=== PATIENT | female | born 1950 | race Caucasian/White ===

== ENCOUNTER → 2017-11-01 15:38 | Outpatient (CLI) | payer MEDICARE, SELFPAY ==
--- NOTE | 2017-11-01 15:44 | BI_ITS ---
MAMMOGRAPHY - BILATERAL SCREENING REASON FOR EXAM: Female, 67 years old. Routine annual screening examination. PERTINENT HISTORY: Non-contributory. TECHNIQUE: Digital bilateral breast tirso (3D mammographic acquisition) in the CC and MLO projections. 2-D mediolateral oblique (MLO) and craniocaudad (CC) views of both breasts were obtained. CAD: Full Field Digital Mammography with Computer Added Detection was performed. COMPARISON: Comparison is made with prior study dated November 21, 2016 and November 09, 2015. FINDINGS: Breast Composition: The breasts are almost entirely fatty. There are no dominant masses or suspicious calcifications. No other significant abnormalities are identified. There has been no significant change since the prior study. BI/SCREENING MAMM (CAD), BILAT IMPRESSION: Stable bilateral screening mammogram. Yearly follow-up mammogram recommended. (A) ASSESSMENT CATEGORY: BIRADS Category 1: Negative. A letter regarding these results will be sent to the patient by the facility within 30 days. Approximately 10% of breast cancers are not detected by mammography. A normal mammogram should not delay biopsy of a clinically suspicious abnormality. [id number] Electronically Signed: Simeon Mcclelland MD at 8:48 EDT Tel [phone], Service support ,
== END ==
PROVIDERS: Visit Provider Nurse Practitioner Family
DX: Z12.31 Encounter for screening mammogram for malignant neoplasm of breast (principal)
CPT/HCPCS: 77063; 77067

== ENCOUNTER → 2018-11-10 | Outpatient (CLI) | payer MEDICARE, SELFPAY ==
--- NOTE | 2018-11-10 15:43 | BI_ITS ---
MAMMOGRAPHY - BILATERAL SCREENING REASON FOR EXAM: Female, 68 years old. Routine annual screening examination. PERTINENT HISTORY: Non-contributory. TECHNIQUE: Digital bilateral breast tirso (3D mammographic acquisition) in the CC and MLO projections. 2-D mediolateral oblique (MLO) and craniocaudad (CC) views of both breasts were obtained. CAD: Full Field Digital Mammography with Computer Added Detection was performed. COMPARISON: Comparison is made with prior study dated November 01, 2017 and November 21, 2016. FINDINGS: Breast Composition: The breasts are almost entirely fatty. There are no dominant masses or suspicious calcifications. No other significant abnormalities are identified. There has been no significant change since the prior study. BI/SCREENING MAMM (CAD), BILAT IMPRESSION: Stable bilateral screening mammogram. Yearly follow-up mammogram recommended. (A) ASSESSMENT CATEGORY: BIRADS Category 1: Negative. A letter regarding these results will be sent to the patient by the facility within 30 days. Approximately 10% of breast cancers are not detected by mammography. A normal mammogram should not delay biopsy of a clinically suspicious abnormality. [id number] Electronically Signed: Simeon Mcclelland, at 8:59 EDT , Service support ,
== END | disposition home or self-care (01) ==
DX: Z12.31 Encounter for screening mammogram for malignant neoplasm of breast (principal)
CPT/HCPCS: 77063; 77067

== ENCOUNTER 2019-02-24 15:56 | Emergency (ER) | payer MEDICARE, SELFPAY ==
[2019-02-24 15:57] VITALS: BP 148/75; PULSE 82; RESP 17; TEMP 36.6; O2SAT 100; BMI 29.0
--- NOTE | 2019-02-24 16:16 | VDLE_ITS ---
Reason For Study: swelling RIGHT LEFT CFV is compressible, spontaneous, phasic, CFV is compressible, spontaneous, phasic, competent and demonstrates normal competent, and demonstrates normal augmentation. augmentation. FV is compressible, spontaneous, phasic, competent and demonstrates normal augmentation. POP V is compressible, spontaneous, phasic, competent and demonstrates normal augmentation. T/P Trunk is compressible. PTV is compressible. RT PerV is compressible. GSV is harvested. Heterogenous area behind the knee and the lateral portion on the lower leg. Area is nonvascular. Area is too large to measure. Procedure Exam performed portable in ED. The exam was diagnostic. A preliminary report was called and/or faxed to Dr. Avila. Interpretation Summary There is no evidence of right lower extremity deep vein thrombosis. Heterogenous, non vascular structure within the subcutaneous right lateral infrageniculate knee. Clinical correlation would be appropriate. Patent and compressible left common femoral vein. Harvested right great saphenous vein Ordering Physician: Ivan Avila Performed By: Jeffrey Maria RVT
--- NOTE | 2019-02-24 16:42 | ED.DCSUM_ITS ---
History of Present Illness Chief Complaint: Lower Extremity Injury Detail of Chief Complaint: Concern for DVT Informant: Patient Onset: Days Context: Sudden Onset Timing: Continuous Quality: Swelling and pain Location: Right lower extremity Current Severity: Mild Maximum Severity: Moderate Worsened by: Palpation Relieved by: Nothing Associated Symptoms: No associated symptoms Narrative: Patient is an elderly woman who injured her right lower extremity February 12. She presents because of persistent pain and swelling. She has palpable nodules. She denies chest pain, shortness of breath, pleuritic pain or hemoptysis. She has no prior history of DVT or PE. She is not on an anticoagulant. She denies paresthesia, anesthesia or motor weakness. She had removal of varicose vein in the remote past right lower extremity. Prior similar symptoms: No Recent Illness/Hospitalization: Yes Past Medical History - Allergies and Home Meds Allergies/Adverse Reactions: Allergies lactose Adverse Reaction (Verified 02/24/19 15:57) Nausea/Vom/Diarrhea Primary Care Physician: Ras Bentley MD [Primary Care Provider] - Prior records reviewed: No - Unavailable for review Surgical History: - - Vein stripping right lower extremity and laser surgery left lower extremity Lives: Spouse/ Significant Other Smoking Status: Never smoker Alcohol: Rare Drugs: None Review of Systems General: Denies: Chills, Fever, Malaise, Sweats Cardiovascular: Denies: Chest pain, Palpitations, Heart racing Respiratory: Denies: Dyspnea, Cough, Dyspnea on exertion Gastrointestinal: Denies: Abdominal pain, Nausea, Vomiting, Diarrhea Genitourinary: Denies: Dysuria, Hematuria, Frequency Musculoskeletal: Reports: Swelling, Extremity Pain. Denies: Myalgias, Arthralgi as, Neck pain, Back pain Skin: Denies: Rash, Wounds Neurological: Denies: Weakness, Parasthesia, Numbness Hematologic: Denies: Easy bruising, Easy bleeding Physical Exam Vital Signs/Narrative: Vital Signs Temp Pulse Resp BP Pulse Ox 02/24/19 15:57 97.8 F 82 17 148/75 H 100 Inital Vital Signs reviewed: Yes General: Well nourished, Well developed, No Acute Distress Eyes: Perrl, EOMI. Negative for: Pale conjunctiva, Scleral icterus Cardiovascular: Regular rate, Regular rhythm, No murmurs, Normal S1, Normal S2 Respiratory: No distress, CTA bilaterally, Chest nontender Back: Negative for: Nontender, Normal Inspection, CVA tenderness, Spinal tenderness, - Extremities: Tenderness, Edema, - - There is swelling in the right lower extremity. There is discoloration. There is pain along this region deep venous system. There are varicose veins noted. There is no palpable cords. Skin: Normal color, No rash, Trauma. Negative for: Cyanosis, Diaphoresis, Jaundice Neurological: Alert, Oriented x3, Cranial nerves II-XII grossly intact, Normal Strength, Normal Sensation, Normal Gait Psychological: Normal affect, Normal Mood Diagnostic/Tx/Re-eval - Medical Decision Making With swelling of the right lower extremity, toes on the deep venous system and history of trauma need to evaluate for DVT. Wells score is 2 which places patient at moderate risk. D-dimer was not ordered for this reason. Venous duplex study was ordered. Duplex study is negative for DVT. There is a large hematoma. ED Disposition - Plan for ED Patient: Disposition: Home or Assisted Living Diagnosis: Hematoma of right lower extremity Instructions: Hematoma Referrals: Ras Bentley MD [Primary Care Provider] - As Needed
== END 2019-02-24 17:20 | disposition home or self-care (01) ==
PROVIDERS: Emergency Provider Emergency Medicine; Family Provider Family Medicine; PCP Family Medicine
DX: S80.11XA Contusion of right lower leg, initial encounter (principal); X58.XXXA Exposure to other specified factors, initial encounter; Y93.9 Activity, unspecified; Y92.89 Other specified places as the place of occurrence of the external cause; Y99.8 Other external cause status
CPT/HCPCS: 93971; 99282

== ENCOUNTER → 2019-11-16 11:06 | Outpatient (CLI) | payer MEDICARE, SELFPAY ==
--- NOTE | 2019-11-16 11:13 | BI_ITS ---
MAMMOGRAPHY - BILATERAL SCREENING REASON FOR EXAM: Female, 69 years old. Routine annual screening examination. PERTINENT HISTORY: Non-contributory. TECHNIQUE: Digital bilateral breast collette (3D mammographic acquisition) in the CC and MLO projections. 2-D mediolateral oblique (MLO) and craniocaudad (CC) views of both breasts were obtained. CAD: Full Field Digital Mammography with Computer Added Detection was performed. COMPARISON: Comparison is made with prior examination dated November 10, 2018 and November 01, 2017. FINDINGS: Breast Composition: The breasts are almost entirely fatty. There are no dominant masses or suspicious calcifications. No other significant abnormalities are identified. There has been no significant change since the prior study. BI/SCREEN MAMM (CAD) W/COLLETTE BILAT IMPRESSION: Stable bilateral screening mammogram. Yearly follow-up mammogram recommended. (A) ASSESSMENT CATEGORY: BIRADS Category 1: Negative. A letter regarding these results will be sent to the patient by the facility within 30 days. Approximately 10% of breast cancers are not detected by mammography. A normal mammogram should not delay biopsy of a clinically suspicious abnormality. [id number] Electronically Signed: Simeon Mcclelland, at 13:39 EDT , Service support ,
== END ==
PROVIDERS: PCP Family Medicine
DX: Z12.31 Encounter for screening mammogram for malignant neoplasm of breast (principal)
CPT/HCPCS: 77063; 77067

== ENCOUNTER 2020-02-23 12:08 | Emergency (ER) | payer MEDICARE, SELFPAY ==
[2020-02-23 12:09] VITALS: BP 117/65; PULSE 78; RESP 16; TEMP 36.4; O2SAT 97; BMI 27.4
--- NOTE | 2020-02-23 12:32 | RAD_ITS ---
STUDY: X-RAY - RIGHT FOOT CLINICAL: Female, 69 years old. INJURED RIGHT FOOT/ RIGHT ANKLE A COUPLE OF DAYS AGO. -- PAIN ACROSS TOP OF RIGHT FOOT INTO RIGHT ANKLE. TECHNIQUE: 3 view(s) of the foot. COMPARISON: None. FINDINGS: There is a plantar calcaneal spur. Normal visualized subtalar, talonavicular, calcaneocuboid, tarsal and tarsometatarsal articulations. Old avulsion fracture of the tarsal navicular bone. Nondisplaced transverse fracture at the base of the fifth metatarsal. Normal metatarsophalangeal joint of the great toe. There is a bipartite tibial sesamoid. Normal interphalangeal joint of the great toe. Normal phalanges of the great toe. Normal second through fifth metatarsophalangeal joints. Normal interphalangeal joints and phalanges of the lesser toes. Soft tissue swelling. RAD/Foot min 3 Views IMPRESSION: Nondisplaced transverse fracture at the base of the fifth metatarsal with overlying soft tissue swelling. Electronically Signed: Simeon Mcclelland, at 13:14 EDT , Service support ,
--- NOTE | 2020-02-23 12:33 | ED.VIS.GEN ---
History of Present Illness Chief Complaint: Lower Extremity Injury Informant: Patient Narrative: Patient is a 69-year-old female with a past medical history of fibromyalgia, chronic fatigue who presents to the emergency department for right foot and ankle pain. 4 days ago she dropped a can of cat food on the top of her right foot. She then went outside and twisted her ankle. She states that it has been painful to ambulate on since then. She has been taking aspirin which has not really been helping. She denies any color changes. The foot has been mildly swollen. No radiation of the leg. No other injury. Besides aspirin not on any other anticoagulation. Past Medical History - Allergies and Home Meds Allergies/Adverse Reactions: Allergies lactose Adverse Reaction (Verified 02/23/20 12:11) Nausea/Vom/Diarrhea Primary Care Physician: Alexa Acosta DPM [STAFF PHYSICIAN] - 1 Day Ras Bentley MD [Primary Care Provider] - Prior records reviewed: Yes Past Medical History: - - Fibromyalgia, chronic fatigue syndrome Surgical History: - - Vein stripping right lower extremity and laser surgery left lower extremity Smoking Status: Never smoker Alcohol: None Review of Systems All systems negative except as indicated General: Denies: Chills, Fever, Sweats Eyes: Denies: Visual changes - bilaterally, Diplopia ENT: Denies: Rhinorrhea, Sore throat Cardiovascular: Denies: Chest pain, Palpitations Respiratory: Denies: Dyspnea, Cough, Dyspnea on exertion Gastrointestinal: Denies: Abdominal pain, Nausea, Vomiting Musculoskeletal: Reports: Swelling, Extremity Pain. Denies: Back pain Skin: Denies: Rash, Wounds Neurological: Denies: Headache, Weakness, Numbness Physical Exam Vital Signs/Narrative: Vital Signs Temp Pulse Resp BP Pulse Ox 02/23/20 12:09 97.5 F L 78 16 117/65 97 Inital Vital Signs reviewed: Yes General: Well nourished, Well developed, No Acute Distress Head: Normocephalic, Atraumatic Eyes: Perrl, EOMI ENT: Moist mucous membranes, No rhinorrhea Neck: Supple Cardiovascular: Regular rate, Regular rhythm, No murmurs Respiratory: No distress, CTA bilaterally, Chest nontender Abdomen: Soft, Nontender, Nondistended Back: Nontender, Normal Inspection Extremities: No edema, - - Patient has tenderness to the dorsal aspect of right foot. No obvious external evidence of trauma. Very mild swelling present. Does have full range of motion of ankle. Neurovascularly intact. No pain over lateral foot. 2+ DP pulse. Skin: Normal color, No rash Neurological: Alert, Oriented x3, Cranial nerves II-XII grossly intact, Normal Strength, Normal Sensation Psychological: Normal affect, Normal Mood Diagnostic/Tx/Re-eval - Medical Decision Making Patient presents to the emergency department for right foot and ankle pain. She dropped a can of cat food on it. She then twisted her ankle. We will get x-rays of the foot and ankle at this time. X-ray of the foot showed a fracture of the base of the fifth metatarsal as well as a possible cuneiform fracture. I did call discussed the case with the on-call head char filter tank tender who recommended placing the patient in a boot. Patient would not able to tolerate splint. It is recommended the patient remain nonweightbearing. She can take Tylenol/ibuprofen for symptomatic treatment. She is to follow-up with the head char filter tank tender. At this time will discharge home in stable condition. She states she does have a wheelchair at home to help her get around. Warning signs and symptoms for which to return to the emergency department are reviewed. She understands and is agreeable with this plan. ED Disposition - Plan for ED Patient: Disposition: Home or Assisted Living Diagnosis: Fracture of base of fifth metatarsal bone, Cuneiform fracture, foot Instructions: ED FOOT FRACTURE Referrals: Ras Bentley MD [Primary Care Provider] - Alexa Acosta DPM [STAFF PHYSICIAN] - 1 Day Additional Instructions: Nonweightbearing on affected foot.
--- NOTE | 2020-02-23 12:36 | RAD_ITS ---
STUDY: X-RAY - RIGHT ANKLE REASON FOR EXAM: Female, 69 years old. INJURED RIGHT FOOT/ RIGHT ANKLE A COUPLE OF DAYS AGO. -- PAIN ACROSS TOP OF RIGHT FOOT INTO RIGHT ANKLE. TECHNIQUE: 3 view(s) of the ankle. COMPARISON: None. FINDINGS: Nondisplaced transverse fracture at the base of the fifth metatarsal. Normal visualized distal tibia and fibula. Normal medial and lateral malleoli. Normal tibiotalar articulation and ankle mortise. Normal visualized talus and calcaneus. I suspect a fracture involving the medial aspect of the first cuneiform bone. Soft tissue swelling. RAD/Ankle min 3 Views IMPRESSION: Nondisplaced transverse fracture at the base of the fifth metatarsal with soft tissue swelling. Questionable nondisplaced fracture involving the medial aspect of the first cuneiform bone. Electronically Signed: Simeon Mcclelland, at 13:12 EDT , Service support ,
[2020-02-23 14:35] VITALS: BP 129/77; PULSE 64; RESP 15; O2SAT 98
== END 2020-02-23 14:35 | disposition home or self-care (01) ==
PROVIDERS: Emergency Provider Emergency Medicine; PCP Family Medicine
DX: S92.354A Nondisplaced fracture of fifth metatarsal bone, right foot, initial encounter for closed fracture (principal); Z79.82 Long term (current) use of aspirin; X50.1XXA Overexertion from prolonged static or awkward postures, initial encounter
CPT/HCPCS: 73610; 73630; 99282; A4216

== ENCOUNTER → 2020-03-10 15:30 | Outpatient (CLI) | payer MEDICARE, SELFPAY ==
[2020-02-23 12:09] VITALS: BMI 27.4
[2020-03-10 18:17] LABS: Vitamin D,25 Hydroxy 45.5 ng/mL
== END ==
PROVIDERS: PCP Family Medicine; Referring Provider Podiatrist; Visit Provider Podiatrist
DX: E55.9 Vitamin D deficiency, unspecified (principal)
CPT/HCPCS: 36415; 82306

== ENCOUNTER 2020-11-10 15:03 | Outpatient (RCR) | payer MEDICARE, SELFPAY | END 2021-01-03 23:59 | LOC: IMMUN 15:03 | PROVIDERS: PCP Family Medicine; Referring Provider Family Medicine; Visit Provider Family Medicine | DX: Z23 Encounter for immunization (principal) | CPT/HCPCS: 0001A; 0002A; 91300 ==

== ENCOUNTER → 2020-11-16 15:36 | Outpatient (CLI) | payer MEDICARE, SELFPAY ==
--- NOTE | 2020-11-16 16:17 | BI_ITS ---
MAMMOGRAPHY - BILATERAL SCREENING REASON FOR EXAM: Female, 70 years old. Routine annual screening examination. PERTINENT HISTORY: Non-contributory. TECHNIQUE: Digital bilateral breast collette (3D mammographic acquisition) in the CC and MLO projections. 2-D mediolateral oblique (MLO) and craniocaudad (CC) views of both breasts were obtained. CAD: Full Field Digital Mammography with Computer Added Detection was performed. COMPARISON: Comparison is made with prior study dated 11/16/2019 and 11/10/2018. FINDINGS: Breast Composition: The breasts are almost entirely fatty. There are no dominant masses or suspicious calcifications. No other significant abnormalities are identified. There has been no significant change since the prior study. BI/SCRN MAMM (CAD)W/COLLETTE BILAT IMPRESSION: Stable bilateral screening mammogram. Yearly follow-up mammogram recommended. (A) ASSESSMENT CATEGORY: BIRADS Category 1: Negative. A letter regarding these results will be sent to the patient by the facility within 30 days. Approximately 10% of breast cancers are not detected by mammography. A normal mammogram should not delay biopsy of a clinically suspicious abnormality. [id number] Electronically Signed: Simeon Mcclelland MD at 7:57 EDT , Service support ,
== END ==
PROVIDERS: PCP Family Medicine; Referring Provider Family Medicine; Visit Provider Family Medicine
DX: Z12.31 Encounter for screening mammogram for malignant neoplasm of breast (principal)
CPT/HCPCS: 77063; 77067

== ENCOUNTER 2021-03-25 15:32 | Emergency (ER) | payer MEDICARE, SELFPAY ==
[2021-03-25 15:33] VITALS: BP 140/71; PULSE 73; RESP 18; TEMP 36.6; O2SAT 98; BMI 27.5
--- NOTE | 2021-03-25 17:00 | ED.VIS.LOWEX ---
HPI History of Present Illness HPI Narrative: Patient presents with bleeding from her left foot that occurred yesterday. Patient states she had recent procedure for varicose veins in her left foot and ankle. Patient states that yesterday she was cleaning her left foot when the skin opened up and there was a large amount of bleeding from her foot. Patient was able to clean the area and apply a pressure dressing. Patient states she has kept the dressing on since yesterday. Patient denies any paresthesias or weakness. Patient states her last tetanus was within 5 years. Chief Complaint: Lower Extremity Injury Informant: patient Onset/Context/Timing Onset: Yesterday Context: Sudden Onset Location: Left foot Worsened by: Nothing Relieved by: Pressure dressing Associated Symptoms Associated Symptoms: Negative for Parasthesia, Weakness and Loss of Funtion PFSH PFS Medical History (Updated 03/25/21 @ 20:[address] Shivam Francois DO) Chronic pain Fibromyalgia Hx of chronic fatigue syndrome Home Medications Aspirin 325 mg PO DAILY 02/24/19 [History Last Taken Unknown] Allergy/AdvReac Type Severity Reaction Status Date / Time lactose AdvReac Nausea/Vom/ Verified 02/23/20 12:11 Diarrhea Social History Smoking Status: Never smoker ROS ROS ED Constitutional Constitutional ED: Denies chills or fever(s) Eyes Eyes: Denies blurry vision or change in vision ENT ENT ED: Denies rhinorrhea or sore throat Cardiovascular Cardiovascular: Denies chest pain or palpitations Respiratory/Chest Respiratory/Chest: Denies cough or dyspnea Gastrointestinal Gastrointestinal: Denies nausea or vomiting Genitourinary Genitourinary ED: Denies dysuria or hematuria Musculoskeletal Musculoskeletal: Reports back pain; Denies neck pain Integumentary Denies abscess or rash Neurologic Neurologic: Denies headache(s) or weakness Allergic/Immunologic Allergic/Immunologic ED: Denies mouth swelling or urticaria EXAM Physical Exam Const Vital Signs: 03/25/21 15:33 Temperature 98 F Temperature Source Temporal Pulse Rate 73 Respiratory Rate 18 Blood Pressure 140/71 H Blood Pressure Mean 94 Pulse Ox 98 Oxygen Delivery Method Room Air Positive well nourished and well developed General Appearance ED: well developed HEENT Reports moist mucous membranes Neck full ROM and supple Extremity Extremity Narrative: The dressing was removed. There is dried blood noted over the dorsal of the left foot. There is no active bleeding. There is no erythema or warmth. There is no discharge or drainage. Pedal pulses are equal bilateral. Capillary refill was less than 2 seconds in all digits. There is full range of motion of the left foot and ankle. Neuro oriented x3, CN's II-XII intact bilaterally, moves all extremities and no sensory deficits noted Sensorium / Orientation: alert Motor Exam: strength 5/5 throughout Psych mental status grossly normal MDM MDM MDM Narrative Medical decision making narrative: Bacitracin dressing was applied. Patient was instructed to keep the wound clean and dry. Patient was instructed to follow-up with her primary care physician in 5 to 7 days. Patient understood and was agreeable with the plan. All questions were answered. Discharge Plan Triage Chief Complaint: Lower Extremity Injury ED Provider: Shivam Francois Dx/Rx/DC Orders Clinical Impression: Ruptured varicose vein Instructions: ED Varicose Veins Prescriptions: No Action Aspirin 325 mg PO DAILY RF: 0 Primary Care Provider: Ras Bentley Referrals: Ras Bentley MD [Primary Care Provider] - 5-7 Days Disposition Disposition: Home, Self Care Discharge Date/Time: 03/25/21 17:23
== END 2021-03-25 17:23 | disposition home or self-care (01) ==
LOC: ED 17:12
PROVIDERS: Emergency Provider Emergency Medicine; PCP Family Medicine
DX: I83.892 Varicose veins of left lower extremity with other complications (principal)
CPT/HCPCS: 99283

== ENCOUNTER → 2021-11-17 | Outpatient (CLI) | payer MEDICARE, SELFPAY ==
--- NOTE | 2021-11-17 15:29 | BI_ITS ---
MAMMOGRAPHY - BILATERAL SCREENING 3-D TOMOSYNTHESIS REASON FOR EXAM: Female, 71 years old. SCREENING PERTINENT HISTORY: No significant family history. TECHNIQUE: 2-D mammograms and 3-D Tomosynthesis of the breast (s) were performed. CAD was performed. COMPARISON: 11/16/2020 FINDINGS: The breast composition is composed of scattered fibroglandular density. Scattered benign calcifications are seen. No dense spiculated masses or suspicious microcalcifications are identified. No architectural distortion is identified. There is no skin thickening or retraction. There has been no significant change since the prior study. BI/SCRN MAMM (CAD)W/COLLETTE BILAT IMPRESSION: No mammographic signs of malignancy. Routine yearly mammograms recommended. ASSESSMENT CATEGORY: BIRADS Category 1: Negative. A letter regarding these results will be sent to the patient by the facility within 30 days. FOLLOW UP RECOMMENDATION: Yearly follow up mammogram recommended. (A) Approximately 10% of breast cancers are not detected by mammography. A normal mammogram should not delay biopsy of a clinically suspicious abnormality. Electronically Signed: Alexander Agarwal MD at 16:50 EDT ,
== END | disposition home or self-care (01) ==
LOC: OPBI 15:28
PROVIDERS: PCP Family Medicine; Referring Provider Family Medicine; Visit Provider Family Medicine
DX: Z12.31 Encounter for screening mammogram for malignant neoplasm of breast (principal)
CPT/HCPCS: 77063; 77067

== ENCOUNTER → 2022-11-19 | Outpatient (CLI) | payer MEDICARE, SELFPAY ==
--- NOTE | 2022-11-19 13:44 | BI_ITS ---
MAMMOGRAPHY - BILATERAL SCREENING REASON FOR EXAM: Female, 72 years old. Routine annual screening examination. PERTINENT HISTORY: Non-contributory. TECHNIQUE: Digital bilateral breast collette (3D mammographic acquisition) in the CC and MLO projections. 2-D mediolateral oblique (MLO) and craniocaudad (CC) views of both breasts were obtained. CAD: Full Field Digital Mammography with Computer Added Detection was performed. COMPARISON: Comparison is made with prior examination November 17, 2021 and November 16, 2020. FINDINGS: Breast Composition: The breasts are almost entirely fatty. There are no dominant masses or suspicious calcifications. No other significant abnormalities are identified. There has been no significant change since the prior study. BI/SCRN MAMM (CAD)W/COLLETTE BILAT IMPRESSION: Stable bilateral screening mammogram. Yearly follow-up mammogram recommended. (A) ASSESSMENT CATEGORY: BIRADS Category 1: Negative. A letter regarding these results will be sent to the patient by the facility within 30 days. Approximately 10% of breast cancers are not detected by mammography. A normal mammogram should not delay biopsy of a clinically suspicious abnormality. [id number] Electronically Signed: Simeon Mcclelland MD at 14:47 EDT ,
== END | disposition home or self-care (01) ==
LOC: OPBI 13:41
PROVIDERS: PCP Family Medicine; Referring Provider Nurse Practitioner Family; Visit Provider Nurse Practitioner Family
DX: Z12.31 Encounter for screening mammogram for malignant neoplasm of breast (principal)
CPT/HCPCS: 77063; 77067

== ENCOUNTER → 2023-11-21 | Outpatient (CLI) | payer MEDICARE, SELFPAY ==
--- NOTE | 2023-11-21 13:28 | BI_ITS ---
MAMMOGRAPHY - BILATERAL SCREENING REASON FOR EXAM: Female, 73 years old. Routine annual screening examination. PERTINENT HISTORY: Non-contributory. TECHNIQUE: Digital bilateral breast collette (3D mammographic acquisition) in the CC and MLO projections. 2-D mediolateral oblique (MLO) and craniocaudad (CC) views of both breasts were obtained. CAD: Full Field Digital Mammography with Computer Added Detection was performed. COMPARISON: Comparison is made with prior study dated November 19, 2022 and November 17, 2021 FINDINGS: Breast Composition: The breasts are almost entirely fatty. There are no dominant masses or suspicious calcifications. No other significant abnormalities are identified. There has been no significant change since the prior study. BI/SCRN MAMM (CAD)W/COLLETTE BILAT IMPRESSION: Stable bilateral screening mammogram. Yearly follow-up mammogram recommended. (A) ASSESSMENT CATEGORY: BIRADS Category 1: Negative. A letter regarding these results will be sent to the patient by the facility within 30 days. Approximately 10% of breast cancers are not detected by mammography. A normal mammogram should not delay biopsy of a clinically suspicious abnormality. [id number] Electronically Signed: Simeon Mcclelland MD at 14:34 EDT ,
== END | disposition home or self-care (01) ==
LOC: OPBI 13:27
PROVIDERS: PCP Family Medicine; Referring Provider Family Medicine; Visit Provider Family Medicine
DX: Z12.31 Encounter for screening mammogram for malignant neoplasm of breast (principal)
CPT/HCPCS: 77063; 77067

== ENCOUNTER → 2024-11-20 | Outpatient (CLI) | payer MEDICARE, SELFPAY ==
--- NOTE | 2024-11-20 12:30 | BI_ITS ---
EXAM: SCRN MAMM (CAD)W/COLLETTE BILAT 11/20/2024 CLINICAL HISTORY: F, Age 74 y/o , SCREENING TECHNIQUE: Bilateral screening digital breast tomosynthesis with 2D and 3D images. Computer aided detection. COMPARISON: Prior exam(s) dated 11/21/2023, 11/19/2022. FINDINGS: TISSUE DENSITY: The breast tissue is almost entirely fatty. Bilateral Breast Mammographic Findings: No significant masses, calcifications or other abnormalities are identified. BI/SCRN MAMM (CAD)W/COLLETTE BILAT IMPRESSION: Right Breast: BIRADS 1 NEGATIVE. Left Breast: BIRADS 1 NEGATIVE. OVERALL FINAL ASSESSMENT: BIRADS 1 NEGATIVE. RECOMMENDATION: Routine annual follow-up in 1 Year A letter with findings and recommendations will be mailed to the patient. Reading Location: [facility]
== END | disposition home or self-care (01) ==
PROVIDERS: PCP Family Medicine; Referring Provider Family Medicine; Visit Provider Family Medicine
DX: Z12.31 Encounter for screening mammogram for malignant neoplasm of breast (principal)
CPT/HCPCS: 77063; 77067